=== PATIENT | male | born 1960 | race Caucasian/White ===

== ENCOUNTER 2016-11-09 04:33 | Inpatient (IN) | payer OTHER ==
[~2016-11-09] VITALS: Ht 172.7 cm; Wt 120.2 kg
[~2016-11-09 04:33] MED LIST: GLIP10TA13 PO; GLUC1TAB29 PO; IBUP-1027 PO; INSU100C4 SQ; INSU100V13 SQ; LISI-334 PO; METF850T2 PO; SIMV20TA3 PO
[2016-11-09] MEDS ORDERED: CONTRAST GIVEN MC PRN (06:00)
[2016-11-09] MEDS ORDERED: IOHEXOL 300 MG/ML 75 ML VIAL IV ONE ×2 (06:00→07:30)
[2016-11-09 06:45] LABS: BASO # 0.1 x10^3/uL (0.0-0.2); BASO % 1 % (0-3); EOS % 1 % (0-3); HEMATOCRIT 50.2 % (39.0-53.0); HEMOGLOBIN 17.6 g/dL (13.0-17.5); LYMPH # 1.7 x10^3/uL (1.0-4.8); LYMPH % 12 % (24-48); MEAN CORPUSCULAR HEMOGLOBIN 32 pg (25-35); MEAN CORPUSCULAR HGB CONC 35 g/dL (31-37); MEAN CORPUSCULAR VOLUME 92 fL (79-100); MONO % 6 % (0-9); NEUT % 80 % (31-73); PLATELET COUNT 247 x10^3/uL (140-400); RED BLOOD COUNT 5.46 x10^6/uL (4.30-5.70); WHITE BLOOD COUNT 14.1 x10^3/uL (4.0-11.0)
[2016-11-09 06:46] LABS: BILIRUBIN,URINE NEGATIVE (NEG); GLUCOSE,URINE NEGATIVE (NEG); NITRITE,URINE NEGATIVE (NEG); PROTEIN,URINE NEGATIVE (NEG-TRACE); UROBILINOGEN,URINE 0.2 mg/dL (0.2 mg/dL)
[2016-11-09 06:53] LABS: CALCIUM 10.5 mg/dL (8.5-10.1); CREATININE 0.7 mg/dL (0.7-1.3); GFR 116.2; POTASSIUM 4.2 mmol/L (3.5-5.1)
[2016-11-09 06:57] LABS: BACTERIA,URINE 0 /HPF (0-FEW); RBC,URINE OCC /HPF (0-2); SQUAMOUS EPITHELIAL CELL,UR FEW /LPF; WBC,URINE RARE /HPF (0-4)
[2016-11-09 06:58] LABS: ALBUMIN 3.8 g/dL (3.4-5.0); ALBUMIN/GLOBULIN RATIO 0.8 (1.0-1.7); TOTAL BILIRUBIN 0.5 mg/dL (0.2-1.0); TOTAL PROTEIN 8.6 g/dL (6.4-8.2)
--- NOTE | 2016-11-09 07:15 | RAD ---
Portable AP upright view CXR: Clinical indications: Upper back pain. Comparison: September 07, 2015 Findings: No acute lung infiltrate or pleural effusion or pulmonary edema or lung mass or pneumothorax is seen. The heart size, pulmonary vasculature, mediastinum and both comfort are stable. Impression: No acute radiographic abnormality is seen.
--- NOTE | 2016-11-09 08:03 | PHYS DOC ---
Past Medical History Past Medical History: Diabetes-Type II, Diverticulitis, Hypertension, Other Additional Past Medical Histor: ENLARGED PROSTATE, bowel obstructions Past Surgical History: Other Additional Past Surgical Histo: ABDOMINAL SURGERY X3, COLOSTOMY Alcohol Use: None Drug Use: None Adult General Chief Complaint Chief Complaint: ABDOMINAL PAIN HPI HPI 56-year-old male with a history of diverticulitis with an bowel perforation which was treated with bowel resection and a colostomy which was later reversed with a history of multiple abdominal surgeries and hernias now presents to the emergency department complaining of mid abdominal pain in the distribution of one of his chronic recurrent hernias. Patient states she has pain in the anterior abdominal wall distribution where his hernia bulge is. It's worse than his baseline, he was concerned so he came to the emergency department to get checked out. No fevers chills sweats or shaking chills. No nausea or vomiting or diarrhea. Pain is not worse with movement Review of Systems Review of Systems Constitutional: Denies fever or chills [] Eyes: Denies change in visual acuity, redness, or eye pain [] HENT: Denies nasal congestion or sore throat [] Respiratory: Denies cough or shortness of breath [] Cardiovascular: No additional information not addressed in HPI [] GI: Denies abdominal pain, nausea, vomiting, bloody stools or diarrhea [] : Denies dysuria or hematuria [] Musculoskeletal: Denies back pain or joint pain [] Integument: Denies rash or skin lesions [] Neurologic: Denies headache, focal weakness or sensory changes [] Endocrine: Denies polyuria or polydipsia [] Current Medications Current Medications Current Medications Medications (Trade) Dose Ordered Sig/Duong Start Time Stop Time Status Last Admin Dose Admin Info (Do NOT chart on this entry -- for MONITORING) 1 each PRN DAILY PRN 11/09/16 06:00 11/11/16 05:59 Iohexol (Omnipaque 300 Mg/ml) 75 ml 1X ONCE 11/09/16 07:30 11/09/16 07:31 DC Allergies Allergies Allergies Coded Allergies Type Severity Reaction Last Updated Verified No Known Drug Allergies 06/12/14 No Physical Exam Physical Exam Alert well appearing no acute distress Constitutional: Well developed, well nourished, no acute distress, non-toxic appearance. [] HENT: Normocephalic, atraumatic, bilateral external ears normal, oropharynx moist, no oral exudates, nose normal. [] Eyes: PERRLA, EOMI, conjunctiva normal, no discharge. [] Neck: Normal range of motion, no tenderness, supple, no stridor. [] Cardiovascular:Heart rate regular rhythm, no murmur [] Lungs & Thorax: Bilateral breath sounds clear to auscultation [] Abdomen: Bowel sounds normal, soft, recent has a approximately 9-10 cm diameter hernia bulge in the anterior abdominal wall this area is tender but not exquisitely so. He has no guarding or rebound multiple well-healed scars in the anterior abdomen and a chronic nonhealing wound 5 cm long on the right mid anterior abdomen. This wound has no fluctuance or crepitus and is nontender in that distribution., no masses, no pulsatile masses. [] Skin: Warm, dry, no erythema, no rash. Unremarkable except wound as above under abdominal exam Back: No tenderness, no CVA tenderness. [] Extremities: No tenderness, no cyanosis, no clubbing, ROM intact, no edema. [] Neurologic: Alert and oriented X 3, normal motor function, normal sensory function, no focal deficits noted. [] Psychologic: Affect normal, judgement normal, mood normal. [] Current Patient Data Vital Signs Vital Signs Date Time Temp Pulse Resp B/P (MAP) Pulse Ox O2 Delivery O2 Flow Rate FiO2 11/09/16 06:37 100 20 153/83 (106) 96 Room Air 11/09/16 04:59 97.6 97.6 Lab Values Laboratory Tests Test 11/09/16 06:20 White Blood Count 14.1 x10^3/uL (4.0-11.0) H Red Blood Count 5.46 x10^6/uL (4.30-5.70) Hemoglobin 17.6 g/dL (13.0-17.5) H Hematocrit 50.2 % (39.0-53.0) Mean Corpuscular Volume 92 fL (79-100) Mean Corpuscular Hemoglobin 32 pg (25-35) Mean Corpuscular Hemoglobin Concent 35 g/dL (31-37) Red Cell Distribution Width 14.0 % (11.5-14.5) Platelet Count 247 x10^3/uL (140-400) Neutrophils (%) (Auto) 80 % (31-73) H Lymphocytes (%) (Auto) 12 % (24-48) L Monocytes (%) (Auto) 6 % (0-9) Eosinophils (%) (Auto) 1 % (0-3) Basophils (%) (Auto) 1 % (0-3) Neutrophils # (Auto) 11.3 x10^3uL (1.8-7.7) H Lymphocytes # (Auto) 1.7 x10^3/uL (1.0-4.8) Monocytes # (Auto) 0.9 x10^3/uL (0.0-1.1) Eosinophils # (Auto) 0.1 x10^3/uL (0.0-0.7) Basophils # (Auto) 0.1 x10^3/uL (0.0-0.2) Urine Collection Type Unknown Urine Color Yellow Urine Clarity Clear Urine pH 6.0 Urine Specific [place] 1.015 Urine Protein Negative mg/dL (NEG-TRACE) Urine Glucose (UA) Negative mg/dL (NEG) Urine Ketones (Stick) Negative mg/dL (NEG) Urine Blood Negative (NEG) Urine Nitrite Negative (NEG) Urine Bilirubin Negative (NEG) Urine Urobilinogen Dipstick 0.2 mg/dL (0.2 mg/dL) Urine Leukocyte Esterase Negative (NEG) Urine RBC Occ /HPF (0-2) Urine WBC Rare /HPF (0-4) Urine Squamous Epithelial Cells Few /LPF Urine Bacteria 0 /HPF (0-FEW) Urine Mucus Slight /LPF Sodium Level 132 mmol/L (136-145) L Potassium Level 4.2 mmol/L (3.5-5.1) Chloride Level 96 mmol/L (98-107) L Carbon Dioxide Level 27 mmol/L (21-32) Anion Gap 9 (6-14) Blood Urea Nitrogen 18 mg/dL (8-26) Creatinine 0.7 mg/dL (0.7-1.3) Estimated GFR (Cockcroft-Gault) 116.2 BUN/Creatinine Ratio 26 (6-20) H Glucose Level 235 mg/dL (70-99) H Calcium Level 10.5 mg/dL (8.5-10.1) H Total Bilirubin 0.5 mg/dL (0.2-1.0) Aspartate Amino Transferase (AST) 22 U/L (15-37) Alanine Aminotransferase (ALT) 47 U/L (16-63) Alkaline Phosphatase 100 U/L (46-116) Total Protein 8.6 g/dL (6.4-8.2) H Albumin 3.8 g/dL (3.4-5.0) Albumin/Globulin Ratio 0.8 (1.0-1.7) L Lipase 140 U/L (73-393) Laboratory Tests 11/09/16 06:20 Laboratory Tests 11/09/16 06:20 EKG EKG [] Radiology/Procedures Radiology/Procedures [] Course & Med Decision Making Course & Med Decision Making Pertinent Labs and Imaging studies reviewed. (See chart for details) 56-year-old male with a history of chronic recurrent abdominal pain and multiple prior surgeries now presents with abdominal pain signs and symptoms consistent with possible incarcerated hernia. Dynamically stable. Afebrile with no infectious prodrome. Normal bowel bladder habits. Labs and CT pending. 8:02 AM case signed out to Dr. Melchor to assume care follow CT results reevaluated and disposition patient [] Dragon Disclaimer Dragon Disclaimer This electronic medical record was generated, in whole or in part, using a voice recognition dictation system. Departure Departure Referrals: ROMERO MCKINNEY MD (PCP) VITO MARTIN MD Nov 09, 2016 08:03
[2016-11-09] MEDS ORDERED: KETOROLAC TROMETHAMINE 30 MG/ML INJ. IV ONE (08:15)
--- NOTE | 2016-11-09 08:16 | ACF ---
Admission Forms Criteria ABDOMINAL PAIN Clinical Indications for Admission to Inpatient Care (Place 'X' for any and all applicable criteria): Admission is indicated for ANY ONE of the following(1)(2)(3)(4)(5): [X]I. Inpatient admission required rather than observation care (Also use Abdominal Pain: Observation Care, as appropriate) because of ANY ONE of the following: [ ]a) Severe pain requiring acute inpatient management [X]b) Identification of etiology/finding that requires inpatient care (eg, aortic dissection, free air) [ ]c) Absent bowel sounds with complete ileus(6) [ ]d) Suspected toxic megacolon [ ]e) Severe electrolyte abnormalities requiring inpatient care [ ]f) High fever or infection requiring inpatient admission as indicated by ANY ONE of following(7)(8): [ ] i) Appropriate outpatient or observational care antimicrobial treatment unavailable, not effective, or not feasible [ ] ii) Documented bacteremia [ ] iii) Temperature > 104.9 degrees F (oral) [ ] iv) T >103.1 F (oral) or < 96.8 F(rectal) that does not respond to all emergency treatment measures [ ]g) Signs of intestinal obstruction [B] [ ]h) Hemodynamic instability [ ]i) IV fluid to replace significant ongoing losses (greater than 3 L/m2 per day) (12)(13) [ ]j) Percutaneous or open drainage (eg, abscess, biliary tract ) procedures [ ]k) Parenteral nutrition regimen that must be implemented on inpatient basis [ ]l) Other condition,treatment or monitoring requiring inpatient admission. [ ]II. Peritoneal signs present [ ]III. Surgery needed that cannot be performed on an ambulatory basis. [ ]IV. Evaluation requires patient to not eat or drink for extended period ( eg, more than 24 hours). [ ]V. Contraindications and/or Inappropriate clinical situations for Observational Care in patients with abdominal pain, when ANY ONE of the following is required: [ ]a) Thorough evaluation is required to prevent catastrophic events due to delays in diagnosing (e.g.Mesenteric ischemia) 1,3 [ ]b) Patient with severe pathology or with chronic symptoms unlikely to improve in the ED stay (3) [ ]. General contraindications and/or Inappropriate clinical situations for Observational Care in patients with abdominal pain, when ANY ONE of the following is required: [ ]a) Prediction of prolongation of LOS based on ANY ONE of the following may be considered as a contraindication for observational care 2, 3, 4, 5, 6, 7, 8, 9, 10, 11 [ ]i) Age > 65 yrs. [ ]ii) Patient arriving by ambulance [ ]iii) Patient with high acuity [ ]iv) Patient requiring vital sign monitoring [ ]v) Patient on IV medication [ ]b) Systolic blood pressures 180mmHg 3,12 [ ]c) Patient with altered mental status including delirium and other alteration of consciousness, (3) [ ]d) Patient whose discharge disposition will be to a care home home or rehabilitation home should not be managed in Emergency Department Observation Unit. CMS rule requires 3 days hospital stay before such placement.3,13 [ ]e) Patient with failure to thrive due to broad array of etiologies 3,16,17 [ ]f) Inability to ambulate 3,14 Extended stay beyond goal length of stay may be needed for(2)(3): [ ]a) Persistent abdominal pain with suspected intra-abdominal process [ ]b) Diagnosed condition requiring continued stay (e.g., pancreatitis, complicated diverticulitis) [ ]c) Surgery (e.g., colectomy) The original [facility] content created by [employer] has been revised. The portions of the content which have been revised are identified through the use of italic text or in bold, and [facility] [employer] has neither reviewed nor approved the modified material.All other unmodified content is copyright [employer]. Please see references footnoted in the original [facility] edition 2016 Admission Criteria Met?: Yes PAXTON URBAN Nov 09, 2016 08:15
--- NOTE | 2016-11-09 08:52 | RAD ---
CT study of the abdomen and pelvis with IV contrast History: Abdominal and back pain. Technique: After IV infusion of 75 cc of Omnipaque 300, helical CT scanning of the abdomen and pelvis was performed. No GI contrast was administered. This may decrease the sensitivity to detect GI tract pathology. PQRS Compliance Statement: One or more of the following individualized dose reduction techniques were utilized for this examination: 1. Automated exposure control 2. Adjustment of the mA and/or kV according to patient size 3. Use of iterative reconstruction technique Comparison: September 06, 2015. Findings: The liver and spleen and pancreas and gallbladder are normal. No extra hepatic biliary ductal dilatation is seen. No adrenal mass is evident. No hydronephrosis or hydroureter is seen. Urinary bladder wall is smooth. No focal aneurysmal dilatation of the abdominal aorta is seen. No enlarged abdominal or pelvic lymphadenopathy is seen. The appendix is normal. There are multiple anterior abdominal wall hernias. Superiorly, there is an anterior midline hernia containing short segment of the transverse colon. This is unchanged. Inferiorly, there is a bilobed hernia sac containing loops of small bowel. In the left side of this hernia sac, there is a bowel loop which is dilated. More inferiorly, there is another hernia sac within the midline containing loops of small bowel. There is dilatation of small bowel proximal to this hernia sac. Therefore this may be the site of obstruction. At the same level on the right side, a large hernia sac is seen containing multiple loops of small bowel which are not abnormally dilated. At the same level, on the left side of the anterior abdominal wall, there is another hernia sac which contains loops of dilated small bowel. This hernia sac has increased in size since the prior study. No free air or free fluid is evident. No lung base consolidation is seen. No osteolytic process is seen. IMPRESSION: Multiple anterior abdominal wall hernias. There is a midline hernia sac containing loops of small bowel which are dilated. There is another hernia sac within the left lateral anterior abdominal wall which has increased in size from the previous study. This also exhibits dilated small bowel. These bowel loops may be dilated due to the more central obstruction of the other hernia sac within the left lateral paramidline abdominal wall more inferiorly. See image 69 and series 2 and image 39 series 5. No free air or free fluid.
[2016-11-09] MEDS ORDERED: MORPHINE SULFATE 4 MG/ML DISP.SYRIN. IV ONE (09:00)
[2016-11-09] MEDS ORDERED: ONDANSETRON PF 4 MG/2 ML VIAL. IV ONE (09:00)
[2016-11-09] MEDS ORDERED: IV NORMAL SALINE 1000ML BAG 1,000 ML IV ONE ×2 (09:00→10:00)
[2016-11-09] MEDS ORDERED: IV DEXTROSE 5 %-0.45 % NACL 1,000 ML IV ONE (10:00)
[2016-11-09 10:15] VITALS: BP 114/81
[2016-11-09] MEDS ORDERED: MULT1TAB52 PO (11:13)
--- NOTE | 2016-11-09 12:28 | PDOC2 ---
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 He has had multiple episodes of abdominal pain and sbo in past, treated with conservative measures. Reports normal stool last night before symptoms started. Denies any flatus today. Pain unchanged. Alleviated some with medication. history of perforated diverticulitis treated with Lauren procedure and colostomy with subsequent colostomy takedown. He previously had multiple hernia repairs Past Medical History Cardiovascular: HTN Endocrine: Diabetes Past Surgical History Past Surgical History: Other (multiple abdominal surgeries ) Family History Family History: Other Social History 2 packs per day ALCOHOL: none Drugs: None Lives: Alone Current Problem List Problem List Problems Medical Problems: (1) Abdominal pain Status: Acute Current Medications Current Medications Current Medications Iohexol (Omnipaque 300 Mg/ml) 75 ml 1X ONCE IV Last administered on 11/09/16 07:23; Start 11/09/16 at 06:00; Stop 11/09/16 at 06:01; Status DC Info (Do NOT chart on this entry -- for MONITORING) 1 each PRN DAILY PRN MC SEE COMMENTS; Start 11/09/16 at 06:00; Stop 11/11/16 at 05:59 Iohexol (Omnipaque 300 Mg/ml) 75 ml 1X ONCE IV ; Start 11/09/16 at 07:30; Stop 11/09/16 at 07:31; Status DC Ketorolac Tromethamine (Toradol) 30 mg 1X ONCE IV Last administered on 08:01; Start 11/09/16 at 08:15; Stop 11/09/16 at 08:16; Status DC Sodium Chloride 1,000 ml @ 1,000 mls/hr 1X ONCE IV Last administered on 09:01; Start 11/09/16 at 09:00; Stop 11/09/16 at 09:59; Status DC Morphine Sulfate 4 mg 1X ONCE IV Last administered on 11/09/16 09:00; Start 11/09/16 at 09:00; Stop 11/09/16 at 09:01; Status DC Ondansetron HCl (Zofran) 4 mg 1X ONCE IV Last administered on 11/09/16t 09:00 ; Start 11/09/16 at 09:00; Stop 11/09/16 at 09:01; Status DC Ondansetron HCl (Zofran) 4 mg PRN Q8HRS PRN IV NAUSEA/VOMITING; Start 11/09/16 at 09:15; Stop 11/10/16 at 09:14 Morphine Sulfate 4 mg PRN Q2HR PRN IV PAIN; Start 11/09/16 at 09:15; Stop 11/10 at 09:14 Dextrose/Sodium Chloride 1,000 ml @ 100 mls/hr 1X ONCE IV ; Start 11/09/16 at 10:00; Stop 11/09/16 at 19:59 Sodium Chloride 1,000 ml @ 1,000 mls/hr 1X ONCE IV ; Start 11/09/16 at 10:00; Stop 11/09/16 at 10:59; Status DC Active Scripts Active Reported Multivitamins (Multivitamin) 1 Each Tablet 1 Tab PO DAILY Knfhpyus-Dlhsea-Wlb D3 Tab (Glucosamine/Chondroitin/Vit D3) 1 Each Tablet 1 Each PO DAILY Ibuprofen 400 Mg Tablet 400 Mg PO PRN PRN Simvastatin 20 Mg Tablet 20 Mg PO HS Lisinopril 20 Mg Tablet 20 Mg PO DAILY Novolog (Insulin Aspart) 100 Unit/1 Ml Cartridge Unknown Dose SQ TIDACHC Metformin Hcl 850 Mg Tablet 850 Mg PO BIDWMEALS Levemir (Insulin Detemir) 100 Unit/1 Ml Vial 40 Unit SQ BID Allergies Allergies: Coded Allergies: No Known Drug Allergies (Unverified , 06/12/14) ROS General: No: Chills, Other (fevers) PSYCHOLOGICAL ROS: No: Anxiety, Depression Eyes: No Blurry vision, No Double vision Hematological and Lymphatic: No: Bleeding Problems, Blood Clots Respiratory: YES: Shortness of breath, No: Cough Cardiovascular: No Chest Pain, No Palpitations Gastrointestinal: Yes Other (see hpi) Genitourinary: No Dysuria, No Hematuria Musculoskeletal: No Joint Pain, No Muscle Pain Neurological: No Confusion, No Numbness/Tingling Skin: Yes Other (chronic wound abdomen ), No Pruritus Physical Exam General: Alert, Oriented X3, Cooperative, No acute distress HEENT: PERRLA, Mucous membr. moist/pink Lungs: Clear to auscultation, Normal air movement Heart: Regular rate, Normal S1, Normal S2, No murmurs Abdomen: Soft, Other (ND, obese abdomen, multiple hernias, partially reducible , tender on exam ) Extremities: No clubbing, No cyanosis Skin: No rashes, No breakdown Neuro: Normal speech, Sensation intact Psych/Mental Status: Mental status NL, Mood NL MUSCULOSKELETAL: No deformity, No swelling Vitals VITALS Vital Signs Date Time Temp Pulse Resp B/P (MAP) Pulse Ox O2 Delivery O2 Flow Rate FiO2 11/09/16 10:15 97.9 105 20 114/81 (92) 94 Room Air 97.9 Labs Labs Laboratory Tests Test 11/09/16 06:20 White Blood Count 14.1 x10^3/uL (4.0-11.0) Red Blood Count 5.46 x10^6/uL (4.30-5.70) Hemoglobin 17.6 g/dL (13.0-17.5) Hematocrit 50.2 % (39.0-53.0) Mean Corpuscular Volume 92 fL (79-100) Mean Corpuscular Hemoglobin 32 pg (25-35) Mean Corpuscular Hemoglobin Concent 35 g/dL (31-37) Red Cell Distribution Width 14.0 % (11.5-14.5) Platelet Count 247 x10^3/uL (140-400) Neutrophils (%) (Auto) 80 % (31-73) Lymphocytes (%) (Auto) 12 % (24-48) Monocytes (%) (Auto) 6 % (0-9) Eosinophils (%) (Auto) 1 % (0-3) Basophils (%) (Auto) 1 % (0-3) Neutrophils # (Auto) 11.3 x10^3uL (1.8-7.7) Lymphocytes # (Auto) 1.7 x10^3/uL (1.0-4.8) Monocytes # (Auto) 0.9 x10^3/uL (0.0-1.1) Eosinophils # (Auto) 0.1 x10^3/uL (0.0-0.7) Basophils # (Auto) 0.1 x10^3/uL (0.0-0.2) Urine Collection Type Unknown Urine Color Yellow Urine Clarity Clear Urine pH 6.0 Urine Specific [place] 1.015 Urine Protein Negative mg/dL (NEG-TRACE) Urine Glucose (UA) Negative mg/dL (NEG) Urine Ketones (Stick) Negative mg/dL (NEG) Urine Blood Negative (NEG) Urine Nitrite Negative (NEG) Urine Bilirubin Negative (NEG) Urine Urobilinogen Dipstick 0.2 mg/dL (0.2 mg/dL) Urine Leukocyte Esterase Negative (NEG) Urine RBC Occ /HPF (0-2) Urine WBC Rare /HPF (0-4) Urine Squamous Epithelial Cells Few /LPF Urine Bacteria 0 /HPF (0-FEW) Urine Mucus Slight /LPF Sodium Level 132 mmol/L (136-145) Potassium Level 4.2 mmol/L (3.5-5.1) Chloride Level 96 mmol/L (98-107) Carbon Dioxide Level 27 mmol/L (21-32) Anion Gap 9 (6-14) Blood Urea Nitrogen 18 mg/dL (8-26) Creatinine 0.7 mg/dL (0.7-1.3) Estimated GFR (Cockcroft-Gault) 116.2 BUN/Creatinine Ratio 26 (6-20) Glucose Level 235 mg/dL (70-99) Calcium Level 10.5 mg/dL (8.5-10.1) Total Bilirubin 0.5 mg/dL (0.2-1.0) Aspartate Amino Transf (AST/SGOT) 22 U/L (15-37) Alanine Aminotransferase (ALT/SGPT) 47 U/L (16-63) Alkaline Phosphatase 100 U/L (46-116) Total Protein 8.6 g/dL (6.4-8.2) Albumin 3.8 g/dL (3.4-5.0) Albumin/Globulin Ratio 0.8 (1.0-1.7) Lipase 140 U/L (73-393) Laboratory Tests Test 11/09/16 06:20 White Blood Count 14.1 x10^3/uL (4.0-11.0) Red Blood Count 5.46 x10^6/uL (4.30-5.70) Hemoglobin 17.6 g/dL (13.0-17.5) Hematocrit 50.2 % (39.0-53.0) Mean Corpuscular Volume 92 fL (79-100) Mean Corpuscular Hemoglobin 32 pg (25-35) Mean Corpuscular Hemoglobin Concent 35 g/dL (31-37) Red Cell Distribution Width 14.0 % (11.5-14.5) Platelet Count 247 x10^3/uL (140-400) Neutrophils (%) (Auto) 80 % (31-73) Lymphocytes (%) (Auto) 12 % (24-48) Monocytes (%) (Auto) 6 % (0-9) Eosinophils (%) (Auto) 1 % (0-3) Basophils (%) (Auto) 1 % (0-3) Neutrophils # (Auto) 11.3 x10^3uL (1.8-7.7) Lymphocytes # (Auto) 1.7 x10^3/uL (1.0-4.8) Monocytes # (Auto) 0.9 x10^3/uL (0.0-1.1) Eosinophils # (Auto) 0.1 x10^3/uL (0.0-0.7) Basophils # (Auto) 0.1 x10^3/uL (0.0-0.2) Urine Collection Type Unknown Urine Color Yellow Urine Clarity Clear Urine pH 6.0 Urine Specific [place] 1.015 Urine Protein Negative mg/dL (NEG-TRACE) Urine Glucose (UA) Negative mg/dL (NEG) Urine Ketones (Stick) Negative mg/dL (NEG) Urine Blood Negative (NEG) Urine Nitrite Negative (NEG) Urine Bilirubin Negative (NEG) Urine Urobilinogen Dipstick 0.2 mg/dL (0.2 mg/dL) Urine Leukocyte Esterase Negative (NEG) Urine RBC Occ /HPF (0-2) Urine WBC Rare /HPF (0-4) Urine Squamous Epithelial Cells Few /LPF Urine Bacteria 0 /HPF (0-FEW) Urine Mucus Slight /LPF Sodium Level 132 mmol/L (136-145) Potassium Level 4.2 mmol/L (3.5-5.1) Chloride Level 96 mmol/L (98-107) Carbon Dioxide Level 27 mmol/L (21-32) Anion Gap 9 (6-14) Blood Urea Nitrogen 18 mg/dL (8-26) Creatinine 0.7 mg/dL (0.7-1.3) Estimated GFR (Cockcroft-Gault) 116.2 BUN/Creatinine Ratio 26 (6-20) Glucose Level 235 mg/dL (70-99) Calcium Level 10.5 mg/dL (8.5-10.1) Total Bilirubin 0.5 mg/dL (0.2-1.0) Aspartate Amino Transf (AST/SGOT) 22 U/L (15-37) Alanine Aminotransferase (ALT/SGPT) 47 U/L (16-63) Alkaline Phosphatase 100 U/L (46-116) Total Protein 8.6 g/dL (6.4-8.2) Albumin 3.8 g/dL (3.4-5.0) Albumin/Globulin Ratio 0.8 (1.0-1.7) Lipase 140 U/L (73-393) Assessment/Plan Assessment/Plan SBO, mulitple hernias containing sb loops multiple comorbidities including, DM, tobaccoism, morbid obesity, multiple prior abdominal surgeries bowel rest, hydration will review with Dr Godfrey, poor surgical candidate TANIA GODFREY MD 11/09/16 5619: CONSULT Allergies Allergies: Coded Allergies: No Known Drug Allergies (Unverified , 06/12/14) Assessment/Plan Assessment/Plan Pt out of room agree with plan will attempt conservative measures at this time WOOD MCLEOD APRN Nov 09, 2016 12:28 TANIA GODFREY MD Nov 09, 2016 17:19
[2016-11-09] MEDS: ONDANSETRON PF 4 MG/2 ML VIAL. IV PRN (13:20)
[2016-11-09] MEDS: MORPHINE SULFATE 4 MG/ML DISP.SYRIN. IV PRN ×2 (13:20→20:21)
[2016-11-09 15:00] VITALS: BP 132/78
[2016-11-09] MEDS ORDERED: DEXTROSE 50% 25 GM / 50ML DISP.SYRIN. IV PRN (16:00)
--- NOTE | 2016-11-09 16:24 | PDOC1 ---
History and Physical Date of Admission Date of Admission DATE: 11/09/16 TIME: 16:09 Identification/Chief Complaint Chief Complaint abdominal pain, N/V Problems: Source Source: Patient History of Present Illness History of Present Illness HISTORY OF PRESENT ILLNESS: The patient is a 56-year-old, who presented to the emergency room complaining of abdominal pain, nausea, and vomiting. The patient has had previously a similar presentation with a small-bowel obstruction about a year ago and 4 month before that . He is known to have also several ventral hernias. He stated that his symptoms started the night before presentation around midnight after coming back from work, He started having abdominal pain, nausea, and vomiting without any melena or hematochezia. He denied fever or chills. He did have some sweating. Denied chest pain. Denied shortness of breath. His blood sugar was very high and his pain was very severe. He presented to the emergency room. Past Medical History Past Medical History : Significant for diabetes mellitus type 2, insulin requiring, diverticulitis, hypertension, history of enlarged prostate, history of colostomy, and history abdominal surgeries in the past.and hyperlipidemia, hx of SBO x2 Cardiovascular: HTN Endocrine: Diabetes Past Surgical History Past Surgical History: Colectomy, Colon Resection (abdominal surgeries), Other (multiple abdominal surgeries ) Family History Family History: Diabetes, High Cholestrol, Hypertension, Kidney Disease, Other Social History Smoke: 2 packs per day ALCOHOL: none Drugs: None Current Problem List Problem List Problems Medical Problems: (1) Abdominal pain Status: Acute Problems: Current Medications Current Medications Current Medications Iohexol (Omnipaque 300 Mg/ml) 75 ml 1X ONCE IV Last administered on 11/09/16 07:23; Start 11/09/16 at 06:00; Stop 11/09/16 at 06:01; Status DC Info (Do NOT chart on this entry -- for MONITORING) 1 each PRN DAILY PRN MC SEE COMMENTS; Start 11/09/16 at 06:00; Stop 11/11/16 at 05:59 Iohexol (Omnipaque 300 Mg/ml) 75 ml 1X ONCE IV ; Start 11/09/16 at 07:30; Stop 11/09/16 at 07:31; Status DC Ketorolac Tromethamine (Toradol) 30 mg 1X ONCE IV Last administered on 08:01; Start 11/09/16 at 08:15; Stop 11/09/16 at 08:16; Status DC Sodium Chloride 1,000 ml @ 1,000 mls/hr 1X ONCE IV Last administered on 09:01; Start 11/09/16 at 09:00; Stop 11/09/16 at 09:59; Status DC Morphine Sulfate 4 mg 1X ONCE IV Last administered on 11/09/16 09:00; Start 11/09/16 at 09:00; Stop 11/09/16 at 09:01; Status DC Ondansetron HCl (Zofran) 4 mg 1X ONCE IV Last administered on 11/09/16 09:00 ; Start 11/09/16 at 09:00; Stop 11/09/16 at 09:01; Status DC Ondansetron HCl (Zofran) 4 mg PRN Q8HRS PRN IV NAUSEA/VOMITING Last administered on 11/09/16 13:20; Start 11/09/16 at 09:15; Stop 11/10/16 at 09:14 Morphine Sulfate 4 mg PRN Q2HR PRN IV PAIN Last administered on 11/09/16 13:20 ; Start 11/09/16 at 09:15; Stop 11/10/16 at 09:14 Dextrose/Sodium Chloride 1,000 ml @ 100 mls/hr 1X ONCE IV ; Start 11/09/16 at 10:00; Stop 11/09/16 at 19:59 Sodium Chloride 1,000 ml @ 1,000 mls/hr 1X ONCE IV ; Start 11/09/16 at 10:00; Stop 11/09/16 at 10:59; Status DC Insulin Detemir (Levemir) 40 units QHS SQ ; Start 11/09/16 at 21:00 Insulin Aspart (NovoLOG) 0-9 UNITS TIDWMEALS SQ ; Start 11/09/16 at 17:00 Dextrose (Dextrose 50%-Water Syringe) 12.5 gm PRN Q15MIN PRN IV SEE COMMENTS; Start 11/09/16 at 16:00 Enoxaparin Sodium (Lovenox 40mg Syringe) 40 mg Q12H SQ ; Start 11/09/16 at 21:00 Active Scripts Active Reported Multivitamins (Multivitamin) 1 Each Tablet 1 Tab PO DAILY Wbsrtjzv-Csenff-Otu D3 Tab (Glucosamine/Chondroitin/Vit D3) 1 Each Tablet 1 Each PO DAILY Ibuprofen 400 Mg Tablet 400 Mg PO PRN PRN Simvastatin 20 Mg Tablet 20 Mg PO HS Lisinopril 20 Mg Tablet 20 Mg PO DAILY Novolog (Insulin Aspart) 100 Unit/1 Ml Cartridge Unknown Dose SQ TIDACHC Metformin Hcl 850 Mg Tablet 850 Mg PO BIDWMEALS Levemir (Insulin Detemir) 100 Unit/1 Ml Vial 40 Unit SQ BID Allergies Allergies: Coded Allergies: No Known Drug Allergies (Unverified , 06/12/14) ROS Gastrointestinal: Yes Nausea, Yes Vomiting, Yes Abdominal Pain Physical Exam General: Alert, Oriented X3, Cooperative HEENT: Atraumatic, PERRLA Heart: RRR Abdomen: Other (lumpy abdomen due to palpable hernia , tenderness mid abd left to midline , hernia present in that area , no rebound , 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) Rectal Exam: not examined Extremities: No clubbing, No cyanosis, No edema Skin: No rashes Neuro: Normal speech, Normal tone, Sensation intact Psych/Mental Status: Mental status NL Vitals Vitals Vital Signs Date Time Temp Pulse Resp B/P (MAP) Pulse Ox O2 Delivery O2 Flow Rate FiO2 11/09/16 15:00 97.6 117 20 132/78 (96) 93 Room Air 97.6 Labs Labs Laboratory Tests Test 11/09/16 06:20 White Blood Count 14.1 x10^3/uL (4.0-11.0) Red Blood Count 5.46 x10^6/uL (4.30-5.70) Hemoglobin 17.6 g/dL (13.0-17.5) Hematocrit 50.2 % (39.0-53.0) Mean Corpuscular Volume 92 fL (79-100) Mean Corpuscular Hemoglobin 32 pg (25-35) Mean Corpuscular Hemoglobin Concent 35 g/dL (31-37) Red Cell Distribution Width 14.0 % (11.5-14.5) Platelet Count 247 x10^3/uL (140-400) Neutrophils (%) (Auto) 80 % (31-73) Lymphocytes (%) (Auto) 12 % (24-48) Monocytes (%) (Auto) 6 % (0-9) Eosinophils (%) (Auto) 1 % (0-3) Basophils (%) (Auto) 1 % (0-3) Neutrophils # (Auto) 11.3 x10^3uL (1.8-7.7) Lymphocytes # (Auto) 1.7 x10^3/uL (1.0-4.8) Monocytes # (Auto) 0.9 x10^3/uL (0.0-1.1) Eosinophils # (Auto) 0.1 x10^3/uL (0.0-0.7) Basophils # (Auto) 0.1 x10^3/uL (0.0-0.2) Urine Collection Type Unknown Urine Color Yellow Urine Clarity Clear Urine pH 6.0 Urine Specific [place] 1.015 Urine Protein Negative mg/dL (NEG-TRACE) Urine Glucose (UA) Negative mg/dL (NEG) Urine Ketones (Stick) Negative mg/dL (NEG) Urine Blood Negative (NEG) Urine Nitrite Negative (NEG) Urine Bilirubin Negative (NEG) Urine Urobilinogen Dipstick 0.2 mg/dL (0.2 mg/dL) Urine Leukocyte Esterase Negative (NEG) Urine RBC Occ /HPF (0-2) Urine WBC Rare /HPF (0-4) Urine Squamous Epithelial Cells Few /LPF Urine Bacteria 0 /HPF (0-FEW) Urine Mucus Slight /LPF Sodium Level 132 mmol/L (136-145) Potassium Level 4.2 mmol/L (3.5-5.1) Chloride Level 96 mmol/L (98-107) Carbon Dioxide Level 27 mmol/L (21-32) Anion Gap 9 (6-14) Blood Urea Nitrogen 18 mg/dL (8-26) Creatinine 0.7 mg/dL (0.7-1.3) Estimated GFR (Cockcroft-Gault) 116.2 BUN/Creatinine Ratio 26 (6-20) Glucose Level 235 mg/dL (70-99) Calcium Level 10.5 mg/dL (8.5-10.1) Total Bilirubin 0.5 mg/dL (0.2-1.0) Aspartate Amino Transf (AST/SGOT) 22 U/L (15-37) Alanine Aminotransferase (ALT/SGPT) 47 U/L (16-63) Alkaline Phosphatase 100 U/L (46-116) Total Protein 8.6 g/dL (6.4-8.2) Albumin 3.8 g/dL (3.4-5.0) Albumin/Globulin Ratio 0.8 (1.0-1.7) Lipase 140 U/L (73-393) Laboratory Tests Test 11/09/16 06:20 White Blood Count 14.1 x10^3/uL (4.0-11.0) Red Blood Count 5.46 x10^6/uL (4.30-5.70) Hemoglobin 17.6 g/dL (13.0-17.5) Hematocrit 50.2 % (39.0-53.0) Mean Corpuscular Volume 92 fL (79-100) Mean Corpuscular Hemoglobin 32 pg (25-35) Mean Corpuscular Hemoglobin Concent 35 g/dL (31-37) Red Cell Distribution Width 14.0 % (11.5-14.5) Platelet Count 247 x10^3/uL (140-400) Neutrophils (%) (Auto) 80 % (31-73) Lymphocytes (%) (Auto) 12 % (24-48) Monocytes (%) (Auto) 6 % (0-9) Eosinophils (%) (Auto) 1 % (0-3) Basophils (%) (Auto) 1 % (0-3) Neutrophils # (Auto) 11.3 x10^3uL (1.8-7.7) Lymphocytes # (Auto) 1.7 x10^3/uL (1.0-4.8) Monocytes # (Auto) 0.9 x10^3/uL (0.0-1.1) Eosinophils # (Auto) 0.1 x10^3/uL (0.0-0.7) Basophils # (Auto) 0.1 x10^3/uL (0.0-0.2) Urine Collection Type Unknown Urine Color Yellow Urine Clarity Clear Urine pH 6.0 Urine Specific [place] 1.015 Urine Protein Negative mg/dL (NEG-TRACE) Urine Glucose (UA) Negative mg/dL (NEG) Urine Ketones (Stick) Negative mg/dL (NEG) Urine Blood Negative (NEG) Urine Nitrite Negative (NEG) Urine Bilirubin Negative (NEG) Urine Urobilinogen Dipstick 0.2 mg/dL (0.2 mg/dL) Urine Leukocyte Esterase Negative (NEG) Urine RBC Occ /HPF (0-2) Urine WBC Rare /HPF (0-4) Urine Squamous Epithelial Cells Few /LPF Urine Bacteria 0 /HPF (0-FEW) Urine Mucus Slight /LPF Sodium Level 132 mmol/L (136-145) Potassium Level 4.2 mmol/L (3.5-5.1) Chloride Level 96 mmol/L (98-107) Carbon Dioxide Level 27 mmol/L (21-32) Anion Gap 9 (6-14) Blood Urea Nitrogen 18 mg/dL (8-26) Creatinine 0.7 mg/dL (0.7-1.3) Estimated GFR (Cockcroft-Gault) 116.2 BUN/Creatinine Ratio 26 (6-20) Glucose Level 235 mg/dL (70-99) Calcium Level 10.5 mg/dL (8.5-10.1) Total Bilirubin 0.5 mg/dL (0.2-1.0) Aspartate Amino Transf (AST/SGOT) 22 U/L (15-37) Alanine Aminotransferase (ALT/SGPT) 47 U/L (16-63) Alkaline Phosphatase 100 U/L (46-116) Total Protein 8.6 g/dL (6.4-8.2) Albumin 3.8 g/dL (3.4-5.0) Albumin/Globulin Ratio 0.8 (1.0-1.7) Lipase 140 U/L (73-393) VTE Prophylaxis Ordered VTE Prophylaxis Devices: Yes VTE Pharmacological Prophylaxi: Yes Assessment/Plan Assessment/Plan IMPRESSION: 1. Abdominal pain with nausea and vomiting. 2. Small bowel obstruction with intractable nausea and vomiting. 3. Diabetes mellitus type 2 with elevated blood sugar 4. Elevated liver enzymes. 5. Previous history of ventral hernia and multiple abdominal surgeries along with previous history of small bowel obstruction. PLAN: The patient is admitted. Surgery is consulted. He is on bowel rest. We will start hydration and insulin to control his blood sugar , pain control and anti emetics,and close monitoring. CALE WHEELER MD Nov 09, 2016 16:24
[2016-11-09] MEDS: INSULIN ASPART 300 UNITS/3 ML INSULN.PEN SQ SCH (17:00)
[2016-11-09 19:40] VITALS: BP 136/78
[2016-11-09] MEDS ORDERED: INSULIN DETEMIR 300 UNITS/3 ML INSULN.PEN. SQ SCH ×2 (21:00)
[2016-11-09] MEDS: POTASSIUM CHLORIDE 30 MEQ in IV NORMAL SALINE 1000ML BAG 1,000 ML IV SCH (21:41)
[2016-11-09] MEDS: ENOXAPARIN 40 MG/0.4 ML SYRINGE. SQ SCH (21:42)
[2016-11-09 23:30] VITALS: BP 120/75
[2016-11-10 02:40] VITALS: BP 118/76
[2016-11-10 04:43] LABS: BASO % 0 % (0-3); EOS % 2 % (0-3); HEMATOCRIT 50.7 % (39.0-53.0); HEMOGLOBIN 16.8 g/dL (13.0-17.5); LYMPH # 1.6 x10^3/uL (1.0-4.8); LYMPH % 14 % (24-48); MEAN CORPUSCULAR HEMOGLOBIN 32 pg (25-35); MEAN CORPUSCULAR HGB CONC 33 g/dL (31-37); MEAN CORPUSCULAR VOLUME 95 fL (79-100); MONO % 9 % (0-9); NEUT % 74 % (31-73); PLATELET COUNT 224 x10^3/uL (140-400); RED BLOOD COUNT 5.35 x10^6/uL (4.30-5.70); RED CELL DISTRIBUTION WIDTH 13.9 % (11.5-14.5); WHITE BLOOD COUNT 11.3 x10^3/uL (4.0-11.0)
[2016-11-10 05:12] LABS: CALCIUM 9.9 mg/dL (8.5-10.1); CREATININE 0.7 mg/dL (0.7-1.3); GFR 116.2; POTASSIUM 4.1 mmol/L (3.5-5.1)
[2016-11-10 07:00] VITALS: BP 134/81
[2016-11-10] MEDS: ENOXAPARIN 40 MG/0.4 ML SYRINGE. SQ SCH ×2 (08:30→21:11)
[2016-11-10] MEDS: MORPHINE SULFATE 4 MG/ML DISP.SYRIN. IV PRN (08:31)
[2016-11-10] MEDS: INSULIN ASPART 300 UNITS/3 ML INSULN.PEN SQ SCH ×3 (08:39→17:33)
[2016-11-10] MEDS: ONDANSETRON PF 4 MG/2 ML VIAL. IV PRN ×3 (08:44→23:35)
[2016-11-10] MEDS: POTASSIUM CHLORIDE 30 MEQ in IV NORMAL SALINE 1000ML BAG 1,000 ML IV SCH ×2 (10:28→23:04)
[2016-11-10 11:00] VITALS: BP 133/80
--- NOTE | 2016-11-10 12:36 | PDOC ---
SUBJECTIVE Subjective vomited once today , still pain but passed gas OBJECTIVE Vital Signs Vital Signs Date Time Temp Pulse Resp B/P (MAP) Pulse Ox O2 Delivery O2 Flow Rate FiO2 11/10/16 11:00 97.7 98 18 133/80 (97) 93 Room Air 97.7 11/10/16 08:31 94 Room Air 11/10/16 08:00 Room Air 11/10/16 07:00 97.5 100 20 134/81 (98) 94 Room Air 97.5 11/10/16 02:40 98.3 103 19 118/76 (90) 93 Room Air 98.3 11/09/16 23:30 98.8 113 18 120/75 (90) 94 Room Air 98.8 11/09/16 20:50 18 Room Air 11/09/16 20:21 16 Room Air 11/09/16 20:00 Room Air 11/09/16 19:40 97.9 109 18 136/78 (97) 92 Room Air 97.9 11/09/16 15:00 97.6 117 20 132/78 (96) 93 Room Air 97.6 11/09/16 13:20 Room Air I & O Intake and Output 11/10/16 07:00 Intake Total 60 ml Output Total 800 ml Balance -740 ml Intake Oral 60 ml Output Emesis 800 ml # Voids 5 PHYSICAL EXAM Physical Exam lungs clear heart RRR abd strip machine tender , + BS palpable hernia ext no shala ASSESSMENT/PLAN Assessment/Plan 1. Abdominal pain with nausea and vomiting. 2. Small bowel obstruction . improving passed gas but still pain and vomited once today , still NPO 3. Diabetes mellitus type 2 with elevated blood sugar 4. Elevated liver enzymes. 5. Previous history of ventral hernia and multiple abdominal surgeries along continue bowel rest and supportive TX, adjust insulin, hope to be able to strt liquid in AM, Dr. Javed covering this weekend Problems: COMMENT Lab Laboratory Tests Test 11/09/16 20:45 11/10/16 03:43 11/10/16 07:28 11/10/16 10:51 Glucose (Fingerstick) 247 mg/dL (70-99) 207 mg/dL (70-99) 207 mg/dL (70-99) White Blood Count 11.3 x10^3/uL (4.0-11.0) Red Blood Count 5.35 x10^6/uL (4.30-5.70) Hemoglobin 16.8 g/dL (13.0-17.5) Hematocrit 50.7 % (39.0-53.0) Mean Corpuscular Volume 95 fL (79-100) Mean Corpuscular Hemoglobin 32 pg (25-35) Mean Corpuscular Hemoglobin Concent 33 g/dL (31-37) Red Cell Distribution Width 13.9 % (11.5-14.5) Platelet Count 224 x10^3/uL (140-400) Neutrophils (%) (Auto) 74 % (31-73) Lymphocytes (%) (Auto) 14 % (24-48) Monocytes (%) (Auto) 9 % (0-9) Eosinophils (%) (Auto) 2 % (0-3) Basophils (%) (Auto) 0 % (0-3) Neutrophils # (Auto) 8.4 x10^3uL (1.8-7.7) Lymphocytes # (Auto) 1.6 x10^3/uL (1.0-4.8) Monocytes # (Auto) 1.0 x10^3/uL (0.0-1.1) Eosinophils # (Auto) 0.2 x10^3/uL (0.0-0.7) Basophils # (Auto) 0.0 x10^3/uL (0.0-0.2) Sodium Level 135 mmol/L (136-145) Potassium Level 4.1 mmol/L (3.5-5.1) Chloride Level 100 mmol/L (98-107) Carbon Dioxide Level 28 mmol/L (21-32) Anion Gap 7 (6-14) Blood Urea Nitrogen 17 mg/dL (8-26) Creatinine 0.7 mg/dL (0.7-1.3) Estimated GFR (Cockcroft-Gault) 116.2 Glucose Level 210 mg/dL (70-99) Calcium Level 9.9 mg/dL (8.5-10.1) Lipase 285 U/L (73-393) CALE WHEELER MD Nov 10, 2016 12:36
--- NOTE | 2016-11-10 13:27 | PDOC ---
SURGICAL PROGRESS NOTE Subjective Josesito for Dr Godfrey no new complaints still feels "bloated", but not lots of pain Vital Signs Vital Signs Date Time Temp Pulse Resp B/P (MAP) Pulse Ox O2 Delivery O2 Flow Rate FiO2 11/10/16 11:00 97.7 98 18 133/80 (97) 93 Room Air 97.7 I&O Intake and Output 11/10/16 06:59 Intake Total 60 ml Output Total 800 ml Balance -740 ml Intake Oral 60 ml Output Emesis 800 ml # Voids 5 PATIENT HAS A LE: No General: Alert, Oriented X3, Cooperative, No acute distress Abdomen: Soft, Other (obese, multiple areas of fullness 2/2 hernias) Labs Laboratory Tests Test 11/09/16 06:20 11/09/16 20:45 11/10/16 03:43 11/10/16 07:28 White Blood Count 14.1 x10^3/uL (4.0-11.0) 11.3 x10^3/uL (4.0-11.0) Red Blood Count 5.46 x10^6/uL (4.30-5.70) 5.35 x10^6/uL (4.30-5.70) Hemoglobin 17.6 g/dL (13.0-17.5) 16.8 g/dL (13.0-17.5) Hematocrit 50.2 % (39.0-53.0) 50.7 % (39.0-53.0) Mean Corpuscular Volume 92 fL (79-100) 95 fL (79-100) Mean Corpuscular Hemoglobin 32 pg (25-35) 32 pg (25-35) Mean Corpuscular Hemoglobin Concent 35 g/dL (31-37) 33 g/dL (31-37) Red Cell Distribution Width 14.0 % (11.5-14.5) 13.9 % (11.5-14.5) Platelet Count 247 x10^3/uL (140-400) 224 x10^3/uL (140-400) Neutrophils (%) (Auto) 80 % (31-73) 74 % (31-73) Lymphocytes (%) (Auto) 12 % (24-48) 14 % (24-48) Monocytes (%) (Auto) 6 % (0-9) 9 % (0-9) Eosinophils (%) (Auto) 1 % (0-3) 2 % (0-3) Basophils (%) (Auto) 1 % (0-3) 0 % (0-3) Neutrophils # (Auto) 11.3 x10^3uL (1.8-7.7) 8.4 x10^3uL (1.8-7.7) Lymphocytes # (Auto) 1.7 x10^3/uL (1.0-4.8) 1.6 x10^3/uL (1.0-4.8) Monocytes # (Auto) 0.9 x10^3/uL (0.0-1.1) 1.0 x10^3/uL (0.0-1.1) Eosinophils # (Auto) 0.1 x10^3/uL (0.0-0.7) 0.2 x10^3/uL (0.0-0.7) Basophils # (Auto) 0.1 x10^3/uL (0.0-0.2) 0.0 x10^3/uL (0.0-0.2) Urine Collection Type Unknown Urine Color Yellow Urine Clarity Clear Urine pH 6.0 Urine Specific [place] 1.015 Urine Protein Negative mg/dL (NEG-TRACE) Urine Glucose (UA) Negative mg/dL (NEG) Urine Ketones (Stick) Negative mg/dL (NEG) Urine Blood Negative (NEG) Urine Nitrite Negative (NEG) Urine Bilirubin Negative (NEG) Urine Urobilinogen Dipstick 0.2 mg/dL (0.2 mg/dL) Urine Leukocyte Esterase Negative (NEG) Urine RBC Occ /HPF (0-2) Urine WBC Rare /HPF (0-4) Urine Squamous Epithelial Cells Few /LPF Urine Bacteria 0 /HPF (0-FEW) Urine Mucus Slight /LPF Sodium Level 132 mmol/L (136-145) 135 mmol/L (136-145) Potassium Level 4.2 mmol/L (3.5-5.1) 4.1 mmol/L (3.5-5.1) Chloride Level 96 mmol/L (98-107) 100 mmol/L (98-107) Carbon Dioxide Level 27 mmol/L (21-32) 28 mmol/L (21-32) Anion Gap 9 (6-14) 7 (6-14) Blood Urea Nitrogen 18 mg/dL (8-26) 17 mg/dL (8-26) Creatinine 0.7 mg/dL (0.7-1.3) 0.7 mg/dL (0.7-1.3) Estimated GFR (Cockcroft-Gault) 116.2 116.2 BUN/Creatinine Ratio 26 (6-20) Glucose Level 235 mg/dL (70-99) 210 mg/dL (70-99) Calcium Level 10.5 mg/dL (8.5-10.1) 9.9 mg/dL (8.5-10.1) Total Bilirubin 0.5 mg/dL (0.2-1.0) Aspartate Amino Transf (AST/SGOT) 22 U/L (15-37) Alanine Aminotransferase (ALT/SGPT) 47 U/L (16-63) Alkaline Phosphatase 100 U/L (46-116) Total Protein 8.6 g/dL (6.4-8.2) Albumin 3.8 g/dL (3.4-5.0) Albumin/Globulin Ratio 0.8 (1.0-1.7) Lipase 140 U/L (73-393) 285 U/L (73-393) Glucose (Fingerstick) 247 mg/dL (70-99) 207 mg/dL (70-99) Test 11/10/16 10:51 Glucose (Fingerstick) 207 mg/dL (70-99) Laboratory Tests Test 11/09/16 20:45 11/10/16 03:43 11/10/16 07:28 11/10/16 10:51 Glucose (Fingerstick) 247 mg/dL (70-99) 207 mg/dL (70-99) 207 mg/dL (70-99) White Blood Count 11.3 x10^3/uL (4.0-11.0) Red Blood Count 5.35 x10^6/uL (4.30-5.70) Hemoglobin 16.8 g/dL (13.0-17.5) Hematocrit 50.7 % (39.0-53.0) Mean Corpuscular Volume 95 fL (79-100) Mean Corpuscular Hemoglobin 32 pg (25-35) Mean Corpuscular Hemoglobin Concent 33 g/dL (31-37) Red Cell Distribution Width 13.9 % (11.5-14.5) Platelet Count 224 x10^3/uL (140-400) Neutrophils (%) (Auto) 74 % (31-73) Lymphocytes (%) (Auto) 14 % (24-48) Monocytes (%) (Auto) 9 % (0-9) Eosinophils (%) (Auto) 2 % (0-3) Basophils (%) (Auto) 0 % (0-3) Neutrophils # (Auto) 8.4 x10^3uL (1.8-7.7) Lymphocytes # (Auto) 1.6 x10^3/uL (1.0-4.8) Monocytes # (Auto) 1.0 x10^3/uL (0.0-1.1) Eosinophils # (Auto) 0.2 x10^3/uL (0.0-0.7) Basophils # (Auto) 0.0 x10^3/uL (0.0-0.2) Sodium Level 135 mmol/L (136-145) Potassium Level 4.1 mmol/L (3.5-5.1) Chloride Level 100 mmol/L (98-107) Carbon Dioxide Level 28 mmol/L (21-32) Anion Gap 7 (6-14) Blood Urea Nitrogen 17 mg/dL (8-26) Creatinine 0.7 mg/dL (0.7-1.3) Estimated GFR (Cockcroft-Gault) 116.2 Glucose Level 210 mg/dL (70-99) Calcium Level 9.9 mg/dL (8.5-10.1) Lipase 285 U/L (73-393) Problem List Problems Medical Problems: (1) Abdominal pain Status: Acute Assessment/Plan multiple [facility] Pt hopes to stop smoking, lose more weight and get DM under better control before any surgical intervention agree with his plan no new surgical recs Dr Matias to follow over the weekend Problems: MANAN ALLEN MD Nov 10, 2016 13:27
[2016-11-10 14:31] VITALS: BP 129/80
[2016-11-10] MEDS: MORPHINE SULFATE 2 MG/ML DISP.SYRIN. IV PRN ×2 (15:36→23:35)
[2016-11-10 19:45] VITALS: BP 116/75
[2016-11-10] MEDS ORDERED: INSULIN DETEMIR 300 UNITS/3 ML INSULN.PEN. SQ SCH (21:00)
[2016-11-10 23:10] VITALS: BP 131/78
[2016-11-11 03:00] VITALS: BP 121/78
[2016-11-11] MEDS: MORPHINE SULFATE 2 MG/ML DISP.SYRIN. IV PRN ×2 (04:17→10:35)
[2016-11-11 05:12] LABS: HEMATOCRIT 46.4 % (39.0-53.0); HEMOGLOBIN 15.8 g/dL (13.0-17.5); RED BLOOD COUNT 4.96 x10^6/uL (4.30-5.70); RED CELL DISTRIBUTION WIDTH 14.1 % (11.5-14.5); WHITE BLOOD COUNT 9.6 x10^3/uL (4.0-11.0)
[2016-11-11 07:44] VITALS: BP 141/82
[2016-11-11] MEDS: INSULIN ASPART 300 UNITS/3 ML INSULN.PEN SQ SCH ×3 (08:36→17:49)
[2016-11-11] MEDS: ENOXAPARIN 40 MG/0.4 ML SYRINGE. SQ SCH ×2 (08:38→20:32)
--- NOTE | 2016-11-11 09:26 | PDOC ---
WOOD MCLEOD CONTROL ROOM TECHNICIAN 11/11/16 0926: SURGICAL PROGRESS NOTE Subjective most of his pain now is hip/low back--off his glucosamine had emesis x 1 yesterday only after IV pain med + flatus, last stool was at admission overall abdominal pain improved Vital Signs Vital Signs Date Time Temp Pulse Resp B/P (MAP) Pulse Ox O2 Delivery O2 Flow Rate FiO2 11/11/16 07:44 97.3 88 18 141/82 (101) 94 Room Air 97.3 I&O Intake and Output 11/11/16 06:59 Intake Total 240 ml Balance 240 ml Intake Oral 240 ml # Voids 6 General: Alert, Oriented X3, Cooperative, No acute distress Abdomen: Soft, Other (hernias present, soft, nontender ) Labs Laboratory Tests Test 11/09/16 20:45 11/10/16 03:43 11/10/16 07:28 11/10/16 10:51 Glucose (Fingerstick) 247 mg/dL (70-99) 207 mg/dL (70-99) 207 mg/dL (70-99) White Blood Count 11.3 x10^3/uL (4.0-11.0) Red Blood Count 5.35 x10^6/uL (4.30-5.70) Hemoglobin 16.8 g/dL (13.0-17.5) Hematocrit 50.7 % (39.0-53.0) Mean Corpuscular Volume 95 fL (79-100) Mean Corpuscular Hemoglobin 32 pg (25-35) Mean Corpuscular Hemoglobin Concent 33 g/dL (31-37) Red Cell Distribution Width 13.9 % (11.5-14.5) Platelet Count 224 x10^3/uL (140-400) Neutrophils (%) (Auto) 74 % (31-73) Lymphocytes (%) (Auto) 14 % (24-48) Monocytes (%) (Auto) 9 % (0-9) Eosinophils (%) (Auto) 2 % (0-3) Basophils (%) (Auto) 0 % (0-3) Neutrophils # (Auto) 8.4 x10^3uL (1.8-7.7) Lymphocytes # (Auto) 1.6 x10^3/uL (1.0-4.8) Monocytes # (Auto) 1.0 x10^3/uL (0.0-1.1) Eosinophils # (Auto) 0.2 x10^3/uL (0.0-0.7) Basophils # (Auto) 0.0 x10^3/uL (0.0-0.2) Sodium Level 135 mmol/L (136-145) Potassium Level 4.1 mmol/L (3.5-5.1) Chloride Level 100 mmol/L (98-107) Carbon Dioxide Level 28 mmol/L (21-32) Anion Gap 7 (6-14) Blood Urea Nitrogen 17 mg/dL (8-26) Creatinine 0.7 mg/dL (0.7-1.3) Estimated GFR (Cockcroft-Gault) 116.2 Glucose Level 210 mg/dL (70-99) Calcium Level 9.9 mg/dL (8.5-10.1) Lipase 285 U/L (73-393) Test 11/10/16 16:41 11/10/16 21:06 11/11/16 04:13 11/11/16 07:31 Glucose (Fingerstick) 205 mg/dL (70-99) 180 mg/dL (70-99) 170 mg/dL (70-99) White Blood Count 9.6 x10^3/uL (4.0-11.0) Red Blood Count 4.96 x10^6/uL (4.30-5.70) Hemoglobin 15.8 g/dL (13.0-17.5) Hematocrit 46.4 % (39.0-53.0) Mean Corpuscular Volume 94 fL (79-100) Mean Corpuscular Hemoglobin 32 pg (25-35) Mean Corpuscular Hemoglobin Concent 34 g/dL (31-37) Red Cell Distribution Width 14.1 % (11.5-14.5) Platelet Count 203 x10^3/uL (140-400) Laboratory Tests Test 11/10/16 10:51 11/10/16 16:41 11/10/16 21:06 11/11/16 04:13 Glucose (Fingerstick) 207 mg/dL (70-99) 205 mg/dL (70-99) 180 mg/dL (70-99) White Blood Count 9.6 x10^3/uL (4.0-11.0) Red Blood Count 4.96 x10^6/uL (4.30-5.70) Hemoglobin 15.8 g/dL (13.0-17.5) Hematocrit 46.4 % (39.0-53.0) Mean Corpuscular Volume 94 fL (79-100) Mean Corpuscular Hemoglobin 32 pg (25-35) Mean Corpuscular Hemoglobin Concent 34 g/dL (31-37) Red Cell Distribution Width 14.1 % (11.5-14.5) Platelet Count 203 x10^3/uL (140-400) Test 11/11/16 07:31 Glucose (Fingerstick) 170 mg/dL (70-99) Problem List Problems Medical Problems: (1) Abdominal pain Status: Acute Assessment/Plan sbo, multiple hernias will check xrays today xray with unchanged mild sb distention--clinically stable, will try clears today Problems: ANICETO ALBERT MD 11/11/16 1654: SURGICAL PROGRESS NOTE Assessment/Plan Agree Problems: WOOD MCLEOD APRN Nov 11, 2016 09:26 ANICETO ALBERT MD Nov 11, 2016 16:54
--- NOTE | 2016-11-11 10:22 | RAD ---
Acute abdomen series with chest, 3 views, 11/11/2016: History: Shortness of breath, small bowel obstruction There is a moderate amount of gas and stool and scattered loops of large bowel. There is mild gaseous distention of several small bowel loops, best seen on the left. The recent CT study showed that some of these bowel loops lie within the abdomen while others lie within ventral hernias. The abdominal gas pattern appears to be similar to that seen on the 11/09/2016 CT exam. No free air is evident in the abdomen. There are scattered vascular calcifications in the abdomen. Degenerative change is evident in the spine. The heart size and pulmonary vascularity are normal. No pulmonary infiltrate is seen. There is no evidence of pleural fluid. IMPRESSION: Mild small bowel distention appears unchanged.
[2016-11-11] MEDS: ONDANSETRON PF 4 MG/2 ML VIAL. IV PRN ×2 (10:36→17:54)
[2016-11-11 10:48] VITALS: BP 126/79
[2016-11-11 11:44] LABS: CALCIUM 9.3 mg/dL (8.5-10.1); CREATININE 0.6 mg/dL (0.7-1.3); GFR 138.9; POTASSIUM 4.1 mmol/L (3.5-5.1)
[2016-11-11] MEDS: POTASSIUM CHLORIDE 30 MEQ in IV NORMAL SALINE 1000ML BAG 1,000 ML IV SCH (11:48)
[2016-11-11 14:43] VITALS: BP 144/81
[2016-11-11] MEDS: INSULIN DETEMIR 300 UNITS/3 ML INSULN.PEN. SQ SCH ×2 (17:50→20:39)
[2016-11-11 19:00] VITALS: BP 149/90
[2016-11-11 23:00] VITALS: BP 115/76
[2016-11-12] MEDS: ONDANSETRON PF 4 MG/2 ML VIAL. IV PRN ×3 (00:36→13:50)
[2016-11-12] MEDS: MORPHINE SULFATE 2 MG/ML DISP.SYRIN. IV PRN ×3 (00:37→12:32)
[2016-11-12] MEDS: POTASSIUM CHLORIDE 30 MEQ in IV NORMAL SALINE 1000ML BAG 1,000 ML IV SCH ×2 (00:38→12:33)
[2016-11-12 03:21] VITALS: BP 114/69
[2016-11-12] MEDS: ENOXAPARIN 40 MG/0.4 ML SYRINGE. SQ SCH ×2 (07:53→20:57)
[2016-11-12 07:59] VITALS: BP 122/76
[2016-11-12] MEDS: INSULIN ASPART 300 UNITS/3 ML INSULN.PEN SQ SCH ×3 (07:59→17:17)
--- NOTE | 2016-11-12 08:58 | PDOC ---
WOOD MCLEOD [employer] 11/12/16 0858: SURGICAL PROGRESS NOTE Subjective tolerated clear liquids no emesis + flatus abdomen nondistended main pain is hips--would like his Ibuprofen for this, prefers no narcs if possible Vital Signs Vital Signs Date Time Temp Pulse Resp B/P (MAP) Pulse Ox O2 Delivery O2 Flow Rate FiO2 11/12/16 07:59 98.6 87 18 122/76 (91) 96 Room Air 98.6 I&O Intake and Output 11/12/16 07:00 Intake Total 2450 ml Balance 2450 ml Intake Oral 2450 ml # Voids 4 General: Alert, Oriented X3, Cooperative, No acute distress Abdomen: Soft, Other (ND, soft, hernias soft, NT) Labs Laboratory Tests Test 11/10/16 10:51 11/10/16 16:41 11/10/16 21:06 11/11/16 04:13 Glucose (Fingerstick) 207 mg/dL (70-99) 205 mg/dL (70-99) 180 mg/dL (70-99) White Blood Count 9.6 x10^3/uL (4.0-11.0) Red Blood Count 4.96 x10^6/uL (4.30-5.70) Hemoglobin 15.8 g/dL (13.0-17.5) Hematocrit 46.4 % (39.0-53.0) Mean Corpuscular Volume 94 fL (79-100) Mean Corpuscular Hemoglobin 32 pg (25-35) Mean Corpuscular Hemoglobin Concent 34 g/dL (31-37) Red Cell Distribution Width 14.1 % (11.5-14.5) Platelet Count 203 x10^3/uL (140-400) Test 11/11/16 07:31 11/11/16 11:00 11/11/16 11:37 11/11/16 13:45 Glucose (Fingerstick) 170 mg/dL (70-99) 171 mg/dL (70-99) 221 mg/dL (70-99) Sodium Level 137 mmol/L (136-145) Potassium Level 4.1 mmol/L (3.5-5.1) Chloride Level 101 mmol/L (98-107) Carbon Dioxide Level 26 mmol/L (21-32) Anion Gap 10 (6-14) Blood Urea Nitrogen 12 mg/dL (8-26) Creatinine 0.6 mg/dL (0.7-1.3) Estimated GFR (Cockcroft-Gault) 138.9 Glucose Level 175 mg/dL (70-99) Hemoglobin A1c 8.1 % (4.8-5.6) Calcium Level 9.3 mg/dL (8.5-10.1) Test 11/11/16 16:54 11/11/16 20:24 11/12/16 07:58 Glucose (Fingerstick) 221 mg/dL (70-99) 218 mg/dL (70-99) 150 mg/dL (70-99) Laboratory Tests Test 11/11/16 11:00 11/11/16 11:37 11/11/16 13:45 11/11/16 16:54 Sodium Level 137 mmol/L (136-145) Potassium Level 4.1 mmol/L (3.5-5.1) Chloride Level 101 mmol/L (98-107) Carbon Dioxide Level 26 mmol/L (21-32) Anion Gap 10 (6-14) Blood Urea Nitrogen 12 mg/dL (8-26) Creatinine 0.6 mg/dL (0.7-1.3) Estimated GFR (Cockcroft-Gault) 138.9 Glucose Level 175 mg/dL (70-99) Hemoglobin A1c 8.1 % (4.8-5.6) Calcium Level 9.3 mg/dL (8.5-10.1) Glucose (Fingerstick) 171 mg/dL (70-99) 221 mg/dL (70-99) 221 mg/dL (70-99) Test 11/11/16 20:24 11/12/16 07:58 Glucose (Fingerstick) 218 mg/dL (70-99) 150 mg/dL (70-99) Problem List Problems Medical Problems: (1) Abdominal pain Status: Acute Assessment/Plan advance to full liquids add Ibuprofen, attempt to avoid IV meds Problems: ANICETO ALBERT MD 11/12/16 1135: SURGICAL PROGRESS NOTE Assessment/Plan Agree with above Problems: WOOD MCLEOD APRN Nov 12, 2016 08:58 ANICETO ALBERT MD Nov 12, 2016 11:35
--- NOTE | 2016-11-12 10:24 | PDOC ---
Provider Note Provider Note vss, no temp, no emesis- has chronic draining ruq wound, ? deep abscess or fistula- a1c 8.1- will cult wound, add bactroban, consider wound vac - as dm/ smoker he is high risk fir sepsis/endocarditis as discussed - he consents to these ideas NABEEL HAYNES MD Nov 12, 2016 10:24
[2016-11-12 11:00] VITALS: BP 122/88
[2016-11-12] MEDS: MUPIROCIN 2 % NASAL OINTMENT 22GM TUBE. NS SCH ×2 (11:55→20:57)
[2016-11-12 15:00] VITALS: BP 134/80
[2016-11-12] MEDS: INSULIN DETEMIR 300 UNITS/3 ML INSULN.PEN. SQ SCH (17:18)
[2016-11-12 19:53] VITALS: BP 136/82
[2016-11-12] MEDS: IBUPROFEN 600 MG TABLET. PO PRN (23:50)
[2016-11-12 23:54] VITALS: BP 126/78
[2016-11-13 03:58] VITALS: BP 135/81
[2016-11-13] MEDS: POTASSIUM CHLORIDE 30 MEQ in IV NORMAL SALINE 1000ML BAG 1,000 ML IV SCH (04:55)
[2016-11-13] MEDS: INSULIN DETEMIR 300 UNITS/3 ML INSULN.PEN. SQ SCH (05:17)
[2016-11-13 07:00] VITALS: BP 142/83
[2016-11-13] MEDS: INSULIN ASPART 300 UNITS/3 ML INSULN.PEN SQ SCH ×2 (08:00→12:45)
--- NOTE | 2016-11-13 08:09 | PDOC ---
Provider Note Provider Note vss, abd same, wound cult pending- glucose ok- will adv diet, home later today if no recurrence of sbo sxs- wound care to see re 7 year ruq wound NABEEL HAYNES MD Nov 13, 2016 08:09
--- NOTE | 2016-11-13 10:33 | PDOC ---
SURGICAL PROGRESS NOTE Subjective Pt denies new c/o, jacklyn PO, with some indigestion, passing flatus, min abd pain Vital Signs Vital Signs Date Time Temp Pulse Resp B/P (MAP) Pulse Ox O2 Delivery O2 Flow Rate FiO2 11/13/16 08:30 Room Air 11/13/16 07:00 97.5 76 20 142/83 (102) 95 97.5 I&O Intake and Output 11/13/16 07:00 Intake Total 1460 ml Balance 1460 ml Intake Oral 1460 ml # Voids 6 General: Alert, Oriented X3, Cooperative, No acute distress Abdomen: Soft, No tenderness, Other (complicated surgical scars, multiple hernias, reducible, chronic wound RUQ) Labs Laboratory Tests Test 11/11/16 11:00 11/11/16 11:37 11/11/16 13:45 11/11/16 16:54 Sodium Level 137 mmol/L (136-145) Potassium Level 4.1 mmol/L (3.5-5.1) Chloride Level 101 mmol/L (98-107) Carbon Dioxide Level 26 mmol/L (21-32) Anion Gap 10 (6-14) Blood Urea Nitrogen 12 mg/dL (8-26) Creatinine 0.6 mg/dL (0.7-1.3) Estimated GFR (Cockcroft-Gault) 138.9 Glucose Level 175 mg/dL (70-99) Hemoglobin A1c 8.1 % (4.8-5.6) Calcium Level 9.3 mg/dL (8.5-10.1) Glucose (Fingerstick) 171 mg/dL (70-99) 221 mg/dL (70-99) 221 mg/dL (70-99) Test 11/11/16 20:24 11/12/16 07:58 11/12/16 11:53 11/12/16 16:46 Glucose (Fingerstick) 218 mg/dL (70-99) 150 mg/dL (70-99) 221 mg/dL (70-99) 200 mg/dL (70-99) Test 11/12/16 20:49 11/13/16 05:13 11/13/16 07:28 Glucose (Fingerstick) 211 mg/dL (70-99) 148 mg/dL (70-99) 135 mg/dL (70-99) Laboratory Tests Test 11/12/16 11:53 11/12/16 16:46 11/12/16 20:49 11/13/16 05:13 Glucose (Fingerstick) 221 mg/dL (70-99) 200 mg/dL (70-99) 211 mg/dL (70-99) 148 mg/dL (70-99) Test 11/13/16 07:28 Glucose (Fingerstick) 135 mg/dL (70-99) Problem List Problems Medical Problems: (1) Abdominal pain Status: Acute Assessment/Plan hernias, SBO appears to be resolving current episode. Given multiple episodes of recurrent SBO, would consider surgical repair electively d/w pt extensively, R/B/A of the procedure. pt wishes to stop smoking and get weight down below 200 lbs. He is encouraged on this. F/U when ready to consider surgery Problems: TANIA ROMAN MD Nov 13, 2016 10:33
[2016-11-13] MEDS: MUPIROCIN 2 % NASAL OINTMENT 22GM TUBE. NS SCH (10:53)
[2016-11-13 11:00] VITALS: BP 128/86
[2016-11-13] MEDS: IBUPROFEN 600 MG TABLET. PO PRN (12:42)
== END 2016-11-13 15:12 | disposition home or self-care (01) | DRG 394 ==
LOC: ER 04:33 → 6 SOUTH 08:45 → OBSVTOIN 11-10 15:13
PROVIDERS: ADMIT Internal Medicine; ATTEND Internal Medicine
DX: K43.6 Other and unspecified ventral hernia with obstruction, without gangrene (principal); Z68.41 Body mass index [BMI] 40.0-44.9, adult; E11.9 Type 2 diabetes mellitus without complications; E66.01 Morbid (severe) obesity due to excess calories; E78.5 Hyperlipidemia, unspecified; F17.210 Nicotine dependence, cigarettes, uncomplicated; I10 Essential (primary) hypertension; N40.0 Benign prostatic hyperplasia without lower urinary tract symptoms; R74.8 Abnormal levels of other serum enzymes; R00.0 Tachycardia, unspecified; Z82.49 Family history of ischemic heart disease and other diseases of the circulatory system; Z83.3 Family history of diabetes mellitus; Z93.3 Colostomy status
CPT/HCPCS: 36415; 71010; 74022; 74177; 80048; 80053; 81001; 82962; 83036; 83690; 85027; 87071; 87075; 87205; 96361; 96374; 96375; G0378; G0379; J1650; J1815; J1885; J2270; J2405; J7030; Q9967; 99285-25

== ENCOUNTER → 2016-12-04 | Outpatient (CLI) | payer OTHER ==
[2016-11-13 11:00] VITALS: BP 128/86
[~2016-12-04] MED LIST changes: +MULT1TAB52 PO
== END | disposition home or self-care (01) ==
LOC: PMGWOUND 11:32
PROVIDERS: ATTEND Emergency Medicine Undersea and Hyperbaric Medicine
DX: T81.31XA Disruption of external operation (surgical) wound, not elsewhere classified, initial encounter (principal); E66.01 Morbid (severe) obesity due to excess calories; E78.5 Hyperlipidemia, unspecified; I10 Essential (primary) hypertension; E78.00 Pure hypercholesterolemia, unspecified; F17.210 Nicotine dependence, cigarettes, uncomplicated; Z86.14 Personal history of Methicillin resistant Staphylococcus aureus infection; Z68.41 Body mass index [BMI] 40.0-44.9, adult; Y83.8 Other surgical procedures as the cause of abnormal reaction of the patient, or of later complication, without mention of misadventure at the time of the procedure; Y82.8 Other medical devices associated with adverse incidents
CPT/HCPCS: 99213